=== PATIENT | female | born 1980 | race Caucasian/White ===

== ENCOUNTER → 2024-01-09 10:04 | Outpatient (REF) | payer BC, SELFPAY | LOC: WDC 10:04 | PROVIDERS: ATTENDING PHYSICIAN Obstetrics & Gynecology | DX: N63.42 Unspecified lump in left breast, subareolar (principal) | CPT/HCPCS: 76642; 77062; 77066 ==

== ENCOUNTER → 2024-01-16 10:01 | Outpatient (REF) | payer BC, SELFPAY ==
--- NOTE | 2024-01-16 13:29 | OID.BR.INTR ---
OID Breast Navigator - Initial
- -
Date of Contact: 01/16/24
Met with patient. Patient given written information on navigator services available at [facility]. Will follow up as needed per protocol.
== END ==
LOC: WDC 10:01
PROVIDERS: ATTENDING PHYSICIAN Obstetrics & Gynecology
DX: N63.21 Unspecified lump in the left breast, upper outer quadrant (principal)
CPT/HCPCS: 88305; 19083; 88341; 88342; 88360; A4648

== ENCOUNTER 2024-05-03 18:38 | Emergency (ER) | payer BC, SELFPAY ==
[2024-05-03 18:44] VITALS: BP 197/100
--- NOTE | 2024-05-03 20:44 | ED.GENMED ---
History of Present Illness
General
Chief Complaint: Headache
Time Seen by Provider: 05/03/24 20:40
History of Present Illness
History of Present Illness:
TIME OF INITIAL ENCOUNTER:
HPI: Patient has history of breast cancer and presents for headache for the past 3 days. This is associated with nausea and photophobia. The patient states she has had migraines when she was a teenager. She was also very concerned about her blood
pressure being elevated. It was in the 190s upon arrival. She was on losartan 25 mg which was increased to 50 mg about 2 weeks ago. She takes it at nighttime. She does not take it yet today.
EXAM:
GENERAL: Appears slightly uncomfortable
HEENT: Moist oral mucosa
CARDIOVASCULAR: No murmurs, normal heart rate, regular rhythm, No chest wall tenderness
PULMONARY: No respiratory distress, breath sounds are clear and equal
ABDOMEN: Soft with no peritoneal signs, no tenderness
NEUROLOGIC: Excellent strength all extremities, no coordination deficits
PSYCHIATRIC: Appropriate mental status, normal insight and judgement
EXTREMITIES: Nontender, no edema, moves all extremities equally
SKIN: No rash, no lesions
NUMBER AND COMPLEXITY OF PROBLEMS ADDRESSED AT THE ENCOUNTER
� Chronic conditions affecting care: Former smoker, asthma, breast cancer
� Acute Exacerbation and/or Progression of Chronic Illness: This is an acute problem
� Differential Diagnosis includes: Migraine headache, metastatic disease, anemia, thyroid disease
AMOUNT AND/OR COMPLEXITY OF DATA TO BE REVIEWED AND ANALYZED
� I performed an independent evaluation of and my interpretation is:
EKG:
CT: CAT scan of the brain shows no acute abnormality
X-rays:
Laboratory Studies: White count and hemoglobin are slightly low otherwise blood work is unremarkable, TSH normal
Other:
� Review of other/old records: I reviewed records, the patient did have a note from the breast navigator this past December
� Clinical information was obtained by an independent historian: Spoke to family member at bedside
� Prescriptions/Medications Considered but not given:
� Further testing considered but not performed:
RISK OF COMPLICATIONS AND/OR MORBIDITY OR MORTALITY OF PATIENT MANAGEMENT
� Social determinants of health affecting care: Lives at home
� Discussion with other providers:
� Escalation of care including admission/observation vs risk of discharge considered: The patient was given Reglan and Toradol. No Benadryl was used given the patient's allergy. She did tolerate Toradol (reported naproxen
allergy). Basic blood work unremarkable. Initial systolic 197/100 and on reevaluation after losartan orally down to 157/83. Will give prescription for Maxalt and increase dose of losartan.
ANY OTHER UPDATES:
10:30 PM: Appears much more comfortable and BP has improved.
Past History
Past History
ED Past Medical History: Asthma and Other (Placental abruption)
ED Past Surgical History: Cholecystectomy, and Tonsilectomy
Social History
Tobacco: Smoker
Alcohol: None
Drug: None
Personal:
Living: with family
Employment: Employed
Family History
Family History: Asthma
Phy Exam
Physical Exam
Physical Exam:
See HPI
Course
Orders/Labs/Results
Orders:
Orders
05/03/24 18:49
CT Head W/o Iv Contrast Urgent
Comment:
Reason For Exam: headache for 3 days, history of breast cancer
05/03/24 20:57
Ketorolac [Toradol] 15 mg IV NOW STA
Losartan [Cozaar] 100 mg PO NOW STA
Metoclopramide [Reglan] 10 mg IV NOW STA
05/03/24 21:09
Basic Metabolic Panel Urgent
Complete Blood Count/With Diff Urgent
TSH Reflex To Free T4 Urgent
Abnormal Lab Results
05/03/24
21:09
WBC 4.6 L 10^3/uL
(4.8-10.8)
RBC 3.89 L 10^6/uL
(4.20-5.40)
Hgb 11.8 L g/dL
(12.0-16.0)
Hct 34.1 L %
(37.0-47.0)
RDW 17.4 H %
(11.5-14.5)
Absolute Lymphs (auto) 1.1 L 10^3/uL
(1.2-3.4)
Monocytes % 10.1 H %
(1.7-9.3)
05/03/24 21:09
05/03/24 21:09
Vital Signs
Blood pressure: 157/83
Initial and Last Documented VS:
Initial Vital Signs
Temp Pulse Resp BP Pulse Ox
36.7 C 92 16 197/100 98
05/03/24 18:44 05/03/24 18:44 05/03/24 18:44 05/03/24 18:44 05/03/24 18:44
Last Documented Vital Signs
Temp Pulse Resp BP Pulse Ox
36.7 C 84 16 157/83 93
05/03/24 18:44 05/03/24 21:20 05/03/24 18:44 05/03/24 22:29 05/03/24 21:30
*Critical Care Note
Total Time (30-74mins, 75-104mins- exclusive of procedures): Not Applicable
ED Attending Note
-
Portions of this chart may have been created with voice recognition software.� Occasional wrong word or��sound alike� substitutions may have occurred due to the inherent limitations of voice recognition software.
Discharge Plan
Departure
Patient Disposition: Home (Routine Discharge)
Date of Disposition: 05/03/24
Time of Disposition: 22:30
Patient with high blood pressure during this ER visit?: Yes
Discharge Problem:
Migraine
Instructions: Migraines (DC)
Prescriptions:
New
rizatriptan [Maxalt] 10 mg tablet
10 mg PO ONCE PRN (Reason: migraine headache) Qty: 10 0RF
losartan 100 mg tablet
100 mg PO DAILY Qty: 30 0RF
No Action
multivitamin 1 EACH tablet
1 ea PO DAILY
calcium carbonate 600 MG tablet
600 mg PO BID
cyanocobalamin (vitamin B-12) 5,000 MCG tablet,disintegrating
5,000 mcg PO R Q48H
Biotin
1 tab PO DAILY
Ferrocite
1 tab PO Q12
Fish Oil Omeg 3-6-9
1 tab PO DAILY
Prilosec
40 mg PO DAILY
Vitamin D
50,000 units PO .WEEKLY
docusate sodium 100 MG capsule
100 mg PO Q12 0RF
oxycodone 5 MG tablet
5 mg PO Q4HPRN PRN (Reason: severe pain when tolerating PO) Qty: 15 0RF
oxycodone 5 MG tablet
2.5 mg PO Q4HPRN PRN (Reason: moderate pain) 0RF
Referrals:
GUMARO GARCÍA CRNP [Family Provider] -
Activity Restrictions/Additional Instructions:
Basic blood work is unremarkable. Thyroid testing also normal. CAT scan of the brain was normal. Your initial systolic was 197 and after losartan was down to 157. I sent a prescription for losartan to your pharmacy. We gave you Reglan and
Toradol tonight. I sent a prescription for Maxalt to your pharmacy as well. Return here if worse or other concerns.
Interventions
Interventions:
*Risk Screen - Suicide Last Done: 05/03/24 18:44
*General Assessment Last Done: 05/03/24 18:44
*Neglect/Abuse Screening Last Done: 05/03/24 21:31
ED- Fall Risk Assessment Last Done: 05/03/24 21:31
*ED COVID-19 Vaccine History Last Done: 05/03/24 18:44
ED- Neurological Assessment Last Done: 05/03/24 21:31
Discharge Date and Time
Print Language: LAO
[2024-05-03 20:54] VITALS: BP 172/90
[2024-05-03] MEDS: COZAAR 100 MG PO (21:20)
[2024-05-03] MEDS: REGLAN 10 MG IV (21:21)
[2024-05-03] MEDS: TORADOL 15 MG IV (21:21)
[2024-05-03 21:22] LABS: % Basophils 0.9 % (0-2); % Immature Granulocytes 0.4 % (0-0.5); % Lymphocytes 23.2 % (20.5-51.1); % Monocytes 10.1 % (1.7-9.3); % Neutrophils 63.4 % (42.2-75.2); Absolute Eosinophils 0.1 10^3/uL (0-0.7); Absolute Lymphocytes 1.1 10^3/uL (1.2-3.4); Absolute Monocytes 0.5 10^3/uL (0.1-0.6); Absolute Neutrophils 2.9 10^3/uL (1.4-6.5); Hematocrit 34.1 % (37.0-47.0); Hemoglobin 11.8 g/dL (12.0-16.0); Mean Corp Hgb Conc. 34.6 g/dL (33.0-37.0); Mean Corpuscular Hgb 30.3 pg (27.0-31.0); Mean Corpuscular Volume 87.7 fL (81.0-99.0); Mean Platelet Volume 8.2 fL (7.4-10.4); Nucleated Red Blood Cells % 0 %; Platelet Count 259 10^3/uL (130-400); Red Blood Cell Count 3.89 10^6/uL (4.20-5.40); Red Cell Dist. Width 17.4 % (11.5-14.5); White Blood Cell Count 4.6 10^3/uL (4.8-10.8)
[2024-05-03 21:36] LABS: Blood Urea Nitrogen 15 mg/dl (7-17); Calcium 9.9 mg/dl (8.4-10.2); Carbon Dioxide 25 mmol/L (22-30); Chloride 102 mmol/L (98-107); Glucose 94 mg/dl (70-99); Potassium 3.6 mmol/L (3.5-5.1); Sodium 136 mmol/L (135-145); eGFR > 60.00
[2024-05-03 22:06] LABS: TSH Reflex To Free T4 0.87 uIU/ml (0.47-4.68)
[2024-05-03 22:26] VITALS: BP 157/83
[2024-05-03 23:00] VITALS: BP 144/82
== END 2024-05-03 23:53 | disposition home or self-care (01) ==
LOC: EMR 18:38
PROVIDERS: EMERGENCY PHYSICIAN Emergency Medicine; FAMILY PHYSICIAN Nurse Practitioner Gerontology
DX: G43.909 Migraine, unspecified, not intractable, without status migrainosus (principal); F17.200 Nicotine dependence, unspecified, uncomplicated; J45.909 Unspecified asthma, uncomplicated; Z85.3 Personal history of malignant neoplasm of breast; Z90.49 Acquired absence of other specified parts of digestive tract
CPT/HCPCS: 96374; 96375; 99284; 70450; 80048; 84443; 85025

== ENCOUNTER 2024-05-12 19:51 | Emergency (ER) | payer BC, OTHER, SELFPAY ==
[2024-05-12 20:08] VITALS: BP 179/114
--- NOTE | 2024-05-13 00:53 | ED.GENMED ---
History of Present Illness
General
Chief Complaint: Swelling
Source: patient
Exam Limitations: none
Time Seen by Provider: 05/13/24 00:42
History of Present Illness
History of Present Illness:
44yoF with a history of breast cancer on oral chemotherapy (clinical trial, follows with [facility]) and hypertension presenting for evaluation of left lower leg erythema. Patient was putting on her pajamas this evening around 6 to 7 PM. She noticed
that her leg appeared red. She has some pressure in the area but denies any overt pain. No reported trauma. No fevers, chills, chest pain, shortness of breath.
Past History
Past History
ED Past Medical History: Asthma and Other (Placental abruption)
ED Past Surgical History: Cholecystectomy, and Tonsilectomy
Social History
Tobacco: Smoker
Alcohol: None
Drug: None
Personal:
Living: with family
Employment: Employed
Family History
Family History: Asthma
Phy Exam
General Physical Exam
General Presentation: well appearing and no apparent distress
General age: appears stated age
General Skin: warm and dry
General Habitus: normal
General Mental: alert
ENT Exam
ENT Exam: normocephalic
Pulmonary Exam
Pulmonary Exam: no respiratory distress
Neurological Exam
Neurological Exam: alert
[place] Coma Scale
Eye Opening: Spontaneous
Verbal Response: Oriented
Motor Response: Obeys Commands
GCS Total Score: 15
Skin Exam
Skin Exam: other (Localized area of erythema/warm noted to the medial/posterior aspect of the L lower leg. Mildly tender to touch. No fluctuance, crepitus, or lymphangitic streaking. )
Psychiatric Exam
Psychiatric Exam: normal mood/affect
Course
Orders/Labs/Results
Orders:
Orders
05/12/24 20:14
US Periph Venous LOWER Ext LT Urgent
Comment:
Reason For Exam: swelling, redness, warmth
05/13/24 00:53
CeFAZolin 2 GRAM [Ancef] 2 grams in 10 ml IV NOW
05/13/24 01:03
Complete Blood Count/With Diff Urgent
Comprehensive Metabolic Panel Urgent
Abnormal Lab Results
05/13/24
01:03
RBC 3.81 L 10^6/uL
(4.20-5.40)
Hgb 11.8 L g/dL
(12.0-16.0)
Hct 34.1 L %
(37.0-47.0)
RDW 16.5 H %
(11.5-14.5)
Abs Immat Gran (auto) 0.1 H 10^3/uL
(0-0.05)
Immature Gran % 1.4 H %
(0-0.5)
Monocytes % 10.0 H %
(1.7-9.3)
BUN 20 H mg/dl
(7-17)
05/13/24 01:03
05/13/24 01:03
Vital Signs
Initial and Last Documented VS:
Initial Vital Signs
Temp Pulse Resp BP Pulse Ox
98.6 F 89 14 179/114 96
05/12/24 20:08 05/12/24 20:08 05/12/24 20:08 05/12/24 20:08 05/12/24 20:08
Last Documented Vital Signs
Temp Pulse Resp BP Pulse Ox
98.6 F 69 18 150/80 98
05/12/24 20:08 05/13/24 01:11 05/13/24 01:11 05/13/24 01:11 05/13/24 01:11
MDM/Problems Addressed
Differential Diagnosis Includes:
44yoF here with L lower leg redness that she noticed this evening. Denies trauma. No f/c. Hx of breast cancer on oral chemotherapy. She is hypertensive with otherwise normal vital signs. She is well-appearing in no acute distress. There is
erythema and warmth localized to the left lower leg on exam. Differential diagnosis includes but is not limited to: Cellulitis, venous stasis, DVT
Initial ED plan: Venous duplex obtained in triage which is negative for DVT. Will check CBC and CMP.
*Critical Care Note
Total Time (30-74mins, 75-104mins- exclusive of procedures): Not Applicable
Update Note
Update Note:
Labs overall unremarkable including normal white count. Unclear if this truly represents infection although given history of breast cancer on chemotherapy, will cover with antibiotics. Dose of IV Ancef given in ED. She was started on a course of
Keflex. She was advised to follow-up closely with her PCP. Strict ED return precautions discussed. Patient in agreement with plan and was discharged in stable condition.
ED Attending Note
-
Portions of this chart may have been created with voice recognition software.� Occasional wrong word or��sound alike� substitutions may have occurred due to the inherent limitations of voice recognition software.
Discharge Plan
Departure
Patient Disposition: Home (Routine Discharge)
Date of Disposition: 05/13/24
Time of Disposition: 01:52
Patient with high blood pressure during this ER visit?: Yes
Discharge Problem:
Cellulitis of left lower extremity
Instructions: Cellulitis (skin infection) in adults - Discharge instructions
Prescriptions:
New
cephalexin 500 mg capsule
500 mg PO Q6H 7 Days Qty: 28 0RF
No Action
multivitamin 1 EACH tablet
1 ea PO DAILY
calcium carbonate 600 MG tablet
600 mg PO BID
cyanocobalamin (vitamin B-12) 5,000 MCG tablet,disintegrating
5,000 mcg PO R Q48H
Biotin
1 tab PO DAILY
Ferrocite
1 tab PO Q12
Fish Oil Omeg 05-31-9
1 tab PO DAILY
Prilosec
40 mg PO DAILY
Vitamin D
50,000 units PO .WEEKLY
docusate sodium 100 MG capsule
100 mg PO Q12 0RF
oxycodone 5 MG tablet
5 mg PO Q4HPRN PRN (Reason: severe pain when tolerating PO) Qty: 15 0RF
oxycodone 5 MG tablet
2.5 mg PO Q4HPRN PRN (Reason: moderate pain) 0RF
rizatriptan [Maxalt] 10 mg tablet
10 mg PO ONCE PRN (Reason: migraine headache) Qty: 10 0RF
losartan 100 mg tablet
100 mg PO DAILY Qty: 30 0RF
Referrals:
GUMARO GARCÍA CRNP [Family Provider] -
Activity Restrictions/Additional Instructions:
Take antibiotics as prescribed.
Please follow-up with your family doctor. Return to the ER with any worsening symptoms, spreading redness, fevers, or chills.
Interventions
Interventions:
*Risk Screen - Suicide Last Done: 05/12/24 20:08
*General Assessment Last Done: 05/12/24 20:08
*Neglect/Abuse Screening Last Done: 05/12/24 20:08
*ED COVID-19 Vaccine History Last Done: 05/13/24 00:45
*Nursing Disposition Last Done: 05/13/24 02:07
ED- Cardiac Assessment Last Done: 05/13/24 01:05
ED- Pulmonary Assessment Last Done: 05/13/24 01:05
ED-Skin Assessment Last Done: 05/13/24 01:05
Discharge Date and Time
Discharge Date/Time: 05/13/24 02:07
Print Language: COMORAN
[2024-05-13] MEDS: ANCEF 10 IV (01:07)
[2024-05-13 01:11] VITALS: BP 150/80
[2024-05-13 01:23] LABS: % Basophils 1.4 % (0-2); % Eosinophils 1.4 % (0-6); % Immature Granulocytes 1.4 % (0-0.5); % Lymphocytes 26.5 % (20.5-51.1); % Neutrophils 59.3 % (42.2-75.2); Absolute Basophils 0.1 10^3/uL (0-0.2); Absolute Eosinophils 0.1 10^3/uL (0-0.7); Absolute Immature Granulocytes 0.1 10^3/uL (0-0.05); Absolute Lymphocytes 1.4 10^3/uL (1.2-3.4); Absolute Monocytes 0.5 10^3/uL (0.1-0.6); Hematocrit 34.1 % (37.0-47.0); Hemoglobin 11.8 g/dL (12.0-16.0); Mean Corp Hgb Conc. 34.6 g/dL (33.0-37.0); Mean Corpuscular Volume 89.5 fL (81.0-99.0); Mean Platelet Volume 8.7 fL (7.4-10.4); Nucleated Red Blood Cells % 0 %; Platelet Count 264 10^3/uL (130-400); Red Blood Cell Count 3.81 10^6/uL (4.20-5.40); Red Cell Dist. Width 16.5 % (11.5-14.5); White Blood Cell Count 5.1 10^3/uL (4.8-10.8)
[2024-05-13 01:24] LABS: ALT (SGPT) 30 U/L (0-35); AST (SGOT) 24 U/L (14-36); Albumin 3.9 g/dl (3.5-5.0); Alkaline Phosphatase 41 U/L (38-126); Blood Urea Nitrogen 20 mg/dl (7-17); Calcium 9.8 mg/dl (8.4-10.2); Carbon Dioxide 26 mmol/L (22-30); Chloride 106 mmol/L (98-107); Glucose 94 mg/dl (70-99); Potassium 3.8 mmol/L (3.5-5.1); Sodium 139 mmol/L (135-145); Total Bilirubin 0.5 mg/dl (0.2-1.3); Total Protein 6.5 g/dl (6.3-8.2); eGFR > 60.00
== END 2024-05-13 02:07 | disposition home or self-care (01) ==
LOC: EMR 19:51
PROVIDERS: Physician Assistant; EMERGENCY PHYSICIAN Student in an Organized Health Care Education/Training Program; FAMILY PHYSICIAN Nurse Practitioner Gerontology
DX: L03.116 Cellulitis of left lower limb (principal); R60.0 Localized edema; C50.919 Malignant neoplasm of unspecified site of unspecified female breast; I10 Essential (primary) hypertension; J45.909 Unspecified asthma, uncomplicated; Z90.49 Acquired absence of other specified parts of digestive tract; F17.200 Nicotine dependence, unspecified, uncomplicated; Z88.6 Allergy status to analgesic agent; Z91.040 Latex allergy status; Z88.5 Allergy status to narcotic agent; Z91.018 Allergy to other foods
CPT/HCPCS: 99284; 96374; 80053; 85025; 93971